=== PATIENT | male | born 1970 | race Caucasian/White ===

== ENCOUNTER 2020-01-31 12:31 | Outpatient (CLI) | payer BC ==
[2020-01-31] MEDS ORDERED: Gadobenate Dimeglumine 529 MG/1 ML (20ML VIAL) ONE (12:45)
[2020-01-31] MEDS ORDERED: Lidocaine 1% PF 10 ML AMP ONE (12:45)
[2020-01-31] MEDS ORDERED: EPINEPHrine 1 MG/ML AMP ONE (12:45)
[2020-01-31] MEDS ORDERED: Iopamidol 300 61% 50 ML VIAL FS ONE (12:45)
--- NOTE | 2020-01-31 14:11 | RAD ---
XR Shoulder Rt Arthrogram History: Shoulder pain Comparison: None Findings: Patient was brought to the fluoroscopy suite. Questions were answered. Informed consent obtained. Timeout performed. Patient's right shoulder was prepped and draped in normal sterile fashion. After adequate local anest hesia with lidocaine, the right glenohumeral joint was accessed with a 22-gauge needle. 10 mL of contrast solution was instilled into the joint. Patient tolerated the procedure well without complica tion. Impression: Technically successful fluoroscopic guided right shoulder arthrogram for MRI.
--- NOTE | 2020-01-31 15:11 | MRI ---
MR ARTHROGRAM OF THE RIGHT SHOULDER: 01/31/20 INDICATION: 49-year-old male with right shoulder pain and arthritis. COMPARISON: Right shoulder arthrogram radiographs of 01/31/20. TECHNIQUE: Multiplanar and multisequence MR images were obtained of the right shoulder following intra-articular administration of dilute gadolinium solution. Please see the separately dictated right shoulder arth rogram for details concerning the injection technique. FINDINGS: There is a partial thickness tear involving the anterior superior, superior and posterior superior gl enoid labrum with tear extension into the posterior aspect of the biceps anchor complex, best seen on image 8 of series 4 and image 13 of series 3. Biceps tendon is located. There is no tear extension o f the biceps tendon. The rotator cuff is intact. The rotator cuff musculature appears within normal l imits. There is mild AC joint osteoarthrosis. There is a type II acromion. No os acromiale is evident . The anterior inferior glenohumeral labral ligamentous complex appears within normal limits. The gle nohumeral articular surface is normal appearing. IMPRESSION: 1. SLAP tear with partial tear extension into the posterior biceps anchor complex. 2. The rotator cuff is intact. 3. Anterior inferior glenohumeral labral ligamentous complex is intact. 4. Mild AC joint osteoarthrosis. POS: [facility]
== END 2020-01-31 12:32 | disposition home or self-care (01) ==
LOC: RAD 12:31
PROVIDERS: ATTEND Orthopaedic Surgery
DX: M19.011 Primary osteoarthritis, right shoulder (principal); S43.431A Superior glenoid labrum lesion of right shoulder, initial encounter
CPT/HCPCS: 23350; A9577; J0171; J2001; Q9967

== ENCOUNTER 2020-02-14 08:12 | Day surgery (SDC) | payer BC ==
[2020-02-10 13:16] VITALS: BMI 30.9
[2020-02-14] MEDS ORDERED: Ropivacaine 0.2% HCl/PF (40 MG/20 ML VIAL) ONE (09:33)
[2020-02-14] MEDS ORDERED: Glycopyrrolate 0.2 MG/ML 5 ML SYRINGE ONE (09:33)
[2020-02-14] MEDS ORDERED: PROPOFOL 200 MG/20 ML VIAL ONE (09:33)
[2020-02-14] MEDS ORDERED: Ropivacaine 0.5% HCl/PF (150 MG/30 ML VIAL) ONE (09:33)
[2020-02-14] MEDS ORDERED: Rocuronium Bromide 10 MG/ML (10ML VIAL) ONE (09:33)
[2020-02-14] MEDS ORDERED: Lidocaine 1% PF 5 ML VIAL ONE (09:33)
[2020-02-14] MEDS ORDERED: Dexamethasone 20 MG/5 ML VIAL ONE (09:33)
[2020-02-14] MEDS ORDERED: Ondansetron PF 4 MG/2 ML Vial ONE (09:33)
[2020-02-14] MEDS ORDERED: Fentanyl 100 MCG/2 ML VIAL ONE ×2 (10:08→12:03)
[2020-02-14] MEDS ORDERED: Midazolam HCl 2 mg/2 ml Vial ONE (10:08)
[2020-02-14] MEDS ORDERED: Ondansetron PF 4 MG/2 ML Vial IVP PRN (10:34)
[2020-02-14] MEDS ORDERED: Promethazine HCl 25 MG/ML VIAL IM PRN (10:34)
[2020-02-14] MEDS ORDERED: Ropivacaine 0.2% 550 ML 550 ML NERVE BLCK SCH (10:34)
[2020-02-14] MEDS ORDERED: Zolpidem Tartrate 5 MG TAB PO PRN (10:34)
[2020-02-14] MEDS ORDERED: traMADol HCl 50 MG TAB PO PRN ×2 (10:34)
[2020-02-14] MEDS ORDERED: HYDROcodone/Acetaminophen 5/325 mg Tablet PO PRN ×2 (10:34)
[2020-02-14] MEDS ORDERED: Bupivacaine/Epinephrine 0.25% 30 ML VIAL ONE (12:38)
--- NOTE | 2020-02-15 09:04 | OP ---
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 POSTOPERATIVE DIAGNOSES: 1. 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 2. Extensive synovitis of the intra-articular glenohumeral joint secondary to biceps instability on the degenerative SLAP tear. PROCEDURES PERFORMED: 1. Right shoulder arthroscopy and debridement and shaving of degenerative labrum, as well as the synovitis as well as the subacromial bursa. 2. Open biceps tenodesis. NON CDL DRIVER: Jake Ricci PA-C ESTIMATED BLOOD LOSS: Minimal. COMPLICATIONS: None. DISPOSITION: He did go to recovery room in stable condition. IMPLANTS: 7 x 23 [employer] Bio-tenodesis. He also had a general anesthetic as well as preoperative block. INDICATIONS: A 49-year-old male who has had problems with his shoulder doing certain activities for many months and at this point, he has failed nonoperative treatment including injections and therapy. DESCRIPTION OF PROCEDURE: After all appropriate consent forms were explained and signed, Joshua was taken to the operating room and at this time was given general anesthetic. Once the level of anesthesia was appropriate, he was rolled into the left lateral decubitus position with all bony prominences well padded. Axillary roll was placed underneath the left axilla. The beanbag was inflated to hold in this position. The arm was then taken through full range of motion and was then suspended with 15 pounds in standard arthroscopic fashion. The right shoulder and upper extremity were then prepped and draped in standard surgical fashion. Bony anatomical landmarks were then drawn out. The subacromial space was infiltrated with Marcaine with epinephrine. A posterior portal was then established. Scope was placed into the shoulder count. The anterior working portal was then made using a needle localization technique. Diagnostic arthroscopy commenced in the glenohumeral joint. Again, there was a tremendous amount of synovitis especially superior to the biceps tendon and anteriorly between the biceps tendon and the subscap tendon. Combination of shaver and SERFAS energy were then used to coagulate and debride all of this tissue, so we can have nice visualization of the joint itself. The subscapularis tendon was found to be intact. Biceps tendon was found to have some tearing at the bicipital root and the entire superior labrum was found to be unstable. There was some significant tearing of the superior labrum itself posterior to the biceps tendon and this was debrided with a shaver back to a stable base. The articular surface of the humeral head and glenoid were in good condition. No loose bodies were noted in the axillary pouch. Posterior labrum and inferior labrum were intact. Rotator cuff tendon was intact. At this time, 18-gauge needle was used to place the stitch through the biceps tendon. The biceps tendon was then cut using the laparoscopic scissors. We then turned our attention into removing the from the glenohumeral joint and place in the subacromial space. Lateral working portal was then made. Shaver and SERFAS energy were then used to remove the significant bursal tissue, allowing excellent visualization of the underlying rotator cuff. This was found to be intact. I did not remove any bone in his acromion. At this time, scope removed and the shoulder was drained. A 15 blade was used to incise down through skin for our biceps tenodesis. Bovie was used to coagulate any drain the patient's bleeding. Deltoid fascia was opened sharply and finger dissection was used to split the fibers in line with the deltoid, taken down to the underlying transverse humeral ligament. This was then opened up and the biceps tendon was pulled out. Copious amount of synovial inflammation was removed from around the biceps tendon and brisk venous bleeding was coagulated at this time. The tendon was then sutured. The intra-articular portion was removed from the field. A wire was placed. Reamer was used to ream to a depth of 25 and a 7 x 23 [employer] Bio-Tenodesis screw was used in standard fashion to fixate the biceps tendon. At this time, we then thoroughly irrigated and dried the wound. We then tied the suture, so that the screw could not back out. We then allowed our deltoid split to follow up upon itself and closed. We then ran a Vicryl to close the deltoid fascia, 2-0 Vicryl and nylon sutures to close skin. Portals closed with simple nylon stitch. At this time, a bulky sterile dressing was applied. Joshua was then awakened. He was to the recovery room in stable condition. All counts were correct at the end of the case and he did receive preoperative IV antibiotics. The bankruptcy assistant surgeon was present throughout the open biceps tenodesis portion of procedure, including the approach, placement of the hardware and closure. Job ID: [id number]
== END 2020-02-14 16:20 | disposition home or self-care (01) ==
LOC: SDC 08:12
PROVIDERS: ATTEND Orthopaedic Surgery
PROC: 0LS30ZZ Reposition Right Upper Arm Tendon, Open Approach (ICD-10-PCS; principal; 2020-02-14)
PROC: 0RBJ4ZZ Excision of Right Shoulder Joint, Percutaneous Endoscopic Approach (ICD-10-PCS; principal; 2020-02-14)
DX: S43.431A Superior glenoid labrum lesion of right shoulder, initial encounter (principal); M25.311 Other instability, right shoulder; M65.811 Other synovitis and tenosynovitis, right shoulder; I10 Essential (primary) hypertension; E78.5 Hyperlipidemia, unspecified; Z79.899 Other long term (current) drug therapy; Z88.6 Allergy status to analgesic agent
CPT/HCPCS: A4306; C1713; J0690; J1100; J2250; J2405; J2704; J2795; J3010